=== PATIENT | male | born 1990 | race Caucasian/White ===

== ENCOUNTER 2022-06-25 19:28 | Outpatient (CLI) | payer OTHER, SELFPAY ==
--- NOTE | 2022-07-01 13:39 | W.PM.SLEEP ---
Sleep Study Details Details Interpreting Provider: Heriberto Joseph MD Date of Sleep Study: 06/25/22 Sleep Study Details: STUDY TYPE:? Home ? BMI:? 28.4 ORDERING PROVIDER:? [place] INDICATION:? Concerns about sleep apnea, elevated Bellerose Score ? SLEEP SUMMARY:? 419.9 monitored minutes RESPIRATORY SUMMARY:? AHI 5.3, supine 5.5, left lateral 9.2, right lateral 2.8 Low oxygen 88 0.8% of study oxygen less than 90%, 0.4% of study oxygen less than 85%, 0.3% of study oxygen less than 80% Snoring% 0.5 PERIODIC LIMB MOVEMENTS OF SLEEP:? Not recorded CARDIAC:? Range 61-102 beats per minute, mean 77.7 IMPRESSION:? Mild obstructive sleep apnea worse in the left lateral position RECOMMENDATION: If patient has daytime hypersomnolence, treatment options would include CPAP AutoSet 4-17, dental appliance and/or airway expansion surgery
--- NOTE | 2022-07-08 12:17 | W.PM.SLEEP ---
Sleep Study Details Details Interpreting Provider: Heriberto Joseph MD Date of Sleep Study: 06/25/22 Sleep Study Details: STUDY TYPE:? Home ? BMI:? 28.4 ORDERING PROVIDER:? [place] INDICATION:? Concerns about sleep apnea ? SLEEP SUMMARY:? 419.9 monitored minutes RESPIRATORY SUMMARY:? AHI 5.3, supine 5.5, left lateral 9.2, right lateral 2.8 Low oxygen 88 0.8% of study oxygen less than 90%, 0.4% of study less than 85%, 0.3% less than 80% Snoring 0.5% PERIODIC LIMB MOVEMENTS OF SLEEP:? Not recorded CARDIAC:? Range 61-102, mean 77.7 beats per minute IMPRESSION:? Mild obstructive sleep apnea RECOMMENDATION: If symptomatic treatment could consist of either CPAP AutoSet 4-17, dental appliance and/or airway expansion surgery.
== END 2022-06-25 19:29 | disposition home or self-care (01) ==
PROVIDERS: PCP Family Medicine; Visit Provider Family Medicine
DX: G47.33 Obstructive sleep apnea (adult) (pediatric) (principal)
CPT/HCPCS: 95806

== ENCOUNTER 2023-01-22 10:35 | Outpatient (CLI) | payer OTHER, SELFPAY | END 2023-01-22 10:36 | disposition home or self-care (01) | LOC: AMB 01-24 16:04 | PROVIDERS: PCP Family Medicine; Visit Provider Internal Medicine | DX: T43.621A Poisoning by amphetamines, accidental (unintentional), initial encounter (principal) | CPT/HCPCS: A0425; A0427 ==

== ENCOUNTER 2023-01-22 11:04 | Emergency (ER) | payer OTHER, SELFPAY ==
[2023-01-22] VITALS (19 sets, daily range): BP systolic 131–150; BP diastolic 83–99; PULSE 101–153; RESP 18–24; TEMP 36.4; O2SAT 97–100
--- NOTE | 2023-01-22 11:23 | ED.NURSE ---
Spoke with Poornima at Poison control. Informed that pt took 20-30tabs of 20mg Adderall XR three hours ago, at 0830. Pt is agitated and hypertensive. Per Poornima, pt will continue to be agitated and hypertensive, Ok to dose with 2mg of Ativan, repeat prn ever 15 minutes until sx are controlled. Will peak in 6-8 hours. Seizures are not likely, but should be on seizure precautions. Should have EKG and Tele monitoring. Draw chemistry, Tylenol and aspirin level. Watch and reassess at 6-8 hours. Meds will metabolize in [address] Mcmillan aware
--- NOTE | 2023-01-22 11:28 | ED_ITS ---
HPI - General Adult General Chief complaint: Overdose <Prashanth Nair MD - Last Filed: 01/22/23 13:58> Stated complaint: Suicidal ideation <Prashanth Nair MD - Last Filed: 01/22/23 13:58> Time Seen by Provider: 01/22/23 11:16 <Prashanth Nair MD - Last Filed: 01/22/23 13:58> History of Present Illness HPI narrative: Patient is a 32-year-old gentleman who is going through a very difficult time in his life. As result he took 30 20 mg tablets of Adderall this morning. He sat down watch [facility] [facility] and at the end called EMS as he was feeling extremely agitated. Patient was trying to end his life. He remains somewhat suicidal at this time. He states he has not use any other drugs or alcohol recently. He states that other than the agitation and chest pounding he has no other significant symptoms. Patient has had no cutting behavior and otherwise appears to be on injured. <Prashanth Nair MD - Last Filed: 01/22/23 13:58> Related Data Home medications: Home Medications Medication Instructions Recorded Confirmed naproxen sodium 220 mg capsule 220 mg PO BID PRN 01/22/23 01/22/23 (Aleve) Previous Rx's Medication Instructions Recorded escitalopram oxalate 20 mg tablet 20 mg PO QDAY #90 tabs 03/14/22 dextroamphetamine-amphetamine 20 20 mg PO TID #90 tabs 01/15/23 mg tablet (Adderall) dextroamphetamine-amphetamine 20 20 mg PO TID #90 tabs 01/15/23 mg tablet (Adderall) <Prashanth Nair MD - Last Filed: 01/22/23 13:58> Allergies/adverse reactions: Allergies Allergy/AdvReac Type Severity Reaction Status Date / Time No Known Drug Allergies Allergy Verified 01/22/23 11:14 <Prashanth Nair MD - Last Filed: 01/22/23 13:58> Review of Systems Status of ROS: Reports: 10 or more systems reviewed and unremarkable except as noted in History and below <Prashanth Nair MD - Last Filed: 01/22/23 13:58> [facility] Medical History: Medical History Suicidal ideation ?R45.851 - Suicidal ideations (ICD-10) Moderate episode of recurrent major depressive disorder (07/08/13) ?F33.1 - Major depressive disorder, recurrent, moderate (ICD-10) History of opioid abuse ?F11.11 - Opioid abuse, in remission (ICD-10) Generalized anxiety disorder (07/20/13) ?F41.1 - Generalized anxiety disorder (ICD-10) Attention deficit hyperactivity disorder (ADHD), predominantly inattentive type ?F90.0 - Attention-deficit hyperactivity disorder, predominantly inattentive type (ICD-10) <Prashanth Nair MD - Last Filed: 01/22/23 13:58> Surgical History: Surgical History History of shoulder surgery (2011) ?Z98.890 - Other specified postprocedural states (ICD-10) History of mandibular surgery (2010) ?Z98.890 - Other specified postprocedural states (ICD-10) <Prashanth Nair MD - Last Filed: 01/22/23 13:58> Social History: Social History Narrative: , 2 kids, 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[employer], smoker What is your current living situation?: I presently have a place to live Problems where you live: lead paint or pipes In the past 12 months, utilities in danger of being shut off: no In past 12 months, lack of transportation kept you from medical appts, meetings, work, or getting things needed for daily living: yes In the past 12 mos, have been you worried that your food would run out before you had money to buy more?: never true In the past 12 mos, the food you bought just didn't last and you didn't have money to buy more?: never true Smoking Status: Former smoker Do you use any of these nicotine containing products: Vaping Products How often do you have a drink containing alcohol: 2-3 times a week How many standard drinks containing alcohol do you have on a typical day: 1 or 2 How often do you have six or more drinks on one occasion: Monthly AUDIT-C Alcohol total score: 5 Non-prescribed substance use: marijuana (any form) How often does anyone, including family, friends and others, physically hurt you : never How often does anyone, including family, friends and others, insult or talk down to you: sometimes How often does anyone, including family, friends and others, threaten you with harm: sometimes How often does anyone, including family, friends and others, scream or curse at you: sometimes Little interest or pleasure in doing things: more than half the days Feeling down, depressed, or hopeless: more than half the days service: No <Prashanth Nair MD - Last Filed: 01/22/23 13:58> Exam Narrative: Exam Narrative: EXAM GENERAL: Patient appears to be agitated. EYES: No scleral icterus. LYMPH: No supraclavicular or cervical lymphadenopathy. SKIN: Visible skin seen during exam normal or with benign process only. EXT: No dependent lower extremity pedal edema. HEART: Regular tachycardia noted. LUNGS: Clear to auscultation bilaterally with no crackles or wheezes. ABD: Soft, non tender, non distended. PSYCH: Good eye contact, speech is not pressured. Neurologic cranial nerves 2-12 grossly intact no focal neurologic defects. <Prashanth Nair MD - Last Filed: 01/22/23 13:58> Const: Vital Signs, click to edit/add: Vital Signs - 24 hr 01/22/23 11:07 01/22/23 12:12 01/22/23 13:27 Temperature Pulse Rate [Right Pulse Oximeter] 153 H Respiratory Rate 24 Blood Pressure Blood Pressure [Ri ght Upper Arm] 131/99 H 150/92 H Pulse Oximetry 100 Oxygen Delivery Me thod Room Air 01/22/23 13:29 01/22/23 15:30 01/22/23 15:34 Temperature Pulse Rate [Right Pulse Oximeter] Respiratory Rate Blood Pressure 150/92 H 149/90 H Blood Pressure [Ri ght Upper Arm] 149/90 H Pulse Oximetry Oxygen Delivery Me thod 01/22/23 16:38 01/22/23 17:38 01/22/23 17:50 Temperature 97.6 F Pulse Rate [Right Pulse Oximeter] 130 H 125 H Respiratory Rate Blood Pressure Blood Pressure [Ri ght Upper Arm] Pulse Oximetry Oxygen Delivery Me thod 01/22/23 17:53 01/22/23 17:54 01/22/23 19:45 Temperature Pulse Rate [Right Pulse Oximeter] Respiratory Rate Blood Pressure 145/83 H 131/92 H Blood Pressure [Ri ght Upper Arm] 145/83 H Pulse Oximetry Oxygen Delivery Me thod 01/22/23 21:12 01/22/23 22:38 Temperature Pulse Rate [Right Pulse Oximeter] 122 H 108 H Respiratory Rate 18 18 Blood Pressure Blood Pressure [Ri ght Upper Arm] Pulse Oximetry 99 97 Oxygen Delivery Me thod Room Air Room Air <Prashanth Nair MD - Last Filed: 01/22/23 13:58> Vital Signs, click to edit/add: Vital Signs - 24 hr 01/22/23 11:07 01/22/23 12:12 01/22/23 13:27 Temperature Pulse Rate [Right Pulse Oximeter] 153 H Respiratory Rate 24 Blood Pressure Blood Pressure [Ri ght Upper Arm] 131/99 H 150/92 H Pulse Oximetry 100 Oxygen Delivery Me thod Room Air 01/22/23 13:29 01/22/23 15:30 01/22/23 15:34 Temperature Pulse Rate [Right Pulse Oximeter] Respiratory Rate Blood Pressure 150/92 H 149/90 H Blood Pressure [Ri ght Upper Arm] 149/90 H Pulse Oximetry Oxygen Delivery Me thod 01/22/23 16:38 01/22/23 17:38 01/22/23 17:50 Temperature 97.6 F Pulse Rate [Right Pulse Oximeter] 130 H 125 H Respiratory Rate Blood Pressure Blood Pressure [Ri ght Upper Arm] Pulse Oximetry Oxygen Delivery Me thod 01/22/23 17:53 01/22/23 17:54 01/22/23 19:45 Temperature Pulse Rate [Right Pulse Oximeter] Respiratory Rate Blood Pressure 145/83 H 131/92 H Blood Pressure [Ri ght Upper Arm] 145/83 H Pulse Oximetry Oxygen Delivery Me thod 01/22/23 21:12 01/22/23 22:38 Temperature Pulse Rate [Right Pulse Oximeter] 122 H 108 H Respiratory Rate 18 18 Blood Pressure Blood Pressure [Ri ght Upper Arm] Pulse Oximetry 99 97 Oxygen Delivery Me thod Room Air Room Air <Claudio Ackerman DO - Last Filed: 01/23/23 01:17> Course Course ED Course: Patient seen and examined. EKG troponin acetaminophen alcohol salicylate CBC CMP ordered. Poison control contacted. Patient given 1 L of normal saline 1 mg of Ativan. <Prashanth Nair MD - Last Filed: 01/22/23 13:58> Reevaluation(s) Time of Reevaluation #1: 13:57 <Prashanth Nair MD - Last Filed: 01/22/23 13:58> Reevaluation #1: Patient is found to have sinus tachycardia on EKG. Laboratory studies are reviewed. I did speak with the deck substation maintenance technician and they are recommending inpatient treatment. We have treated with Ativan and topical nicotine patches and we are waiting transferred for psychiatric care. <Prashanth Nair MD - Last Filed: 01/22/23 13:58> Vital Signs Vital signs: Initial Vital Signs Pulse Rate 153 H 01/22/23 11:07 Respiratory Rate 24 01/22/23 11:07 Pulse Oximetry 100 01/22/23 11:07 Oxygen Delivery Method Room Air 01/22/23 11:07 Vital Signs Pulse Rate 153 H 01/22/23 11:07 Respiratory Rate 24 01/22/23 11:07 Pulse Oximetry 100 01/22/23 11:07 Oxygen Delivery Method Room Air 01/22/23 11:07 Temperature 97.6 F 01/22/23 16:38 Pulse Rate 108 H 01/22/23 22:38 Respiratory Rate 18 01/22/23 22:38 Blood Pressure 131/92 H 01/22/23 19:45 Pulse Oximetry 97 01/22/23 22:38 Oxygen Delivery Method Room Air 01/22/23 22:38 <Prashanth Nair MD - Last Filed: 01/22/23 13:58> Initial Vital Signs Pulse Rate 153 H 01/22/23 11:07 Respiratory Rate 24 01/22/23 11:07 Pulse Oximetry 100 01/22/23 11:07 Oxygen Delivery Method Room Air 01/22/23 11:07 Vital Signs Pulse Rate 153 H 01/22/23 11:07 Respiratory Rate 24 01/22/23 11:07 Pulse Oximetry 100 01/22/23 11:07 Oxygen Delivery Method Room Air 01/22/23 11:07 Temperature 97.6 F 01/22/23 16:38 Pulse Rate 108 H 01/22/23 22:38 Respiratory Rate 18 01/22/23 22:38 Blood Pressure 131/92 H 01/22/23 19:45 Pulse Oximetry 97 01/22/23 22:38 Oxygen Delivery Method Room Air 01/22/23 22:38 <Claudio Ackerman, DO - Last Filed: 01/23/23 01:17> Medical Decision Making MDM Narrative Medical decision making narrative: Patient was signed out to me pending improvement in heart rate. Poison Control informed us to increase the Ativan dosage from 1 mg to 2 mg for better rate control. With increased Ativan dosage his heart rate has improved. It is currently still in the low 100s. He is not medically clear yet per poison Control and the signed out to my colleague Dr. Ladd <Claudio Ackerman DO - Last Filed: 01/23/23 01:17> Lab Data Labs: Lab Results 01/22/23 01/22/23 01/22/23 Range/Units 11:45 16:54 Unknown WBC 12.19 H (4.50-11.00) K/uL RBC 5.28 (4.30-5.90) m/uL Hgb 16.7 (13.5-17.5) gm/dL Hct 45.6 (37.0-53.0) % MCV 86 (80-100) fL MCH 32 (26-34) pg MCHC 37 H (32-36) gm/dL RDW Coeff of Kristin 11.9 (11.5-15.5) % Plt Count 307 (140-440) K/uL Neut % (Auto) 78.8 H (42.0-72.0) % Lymph % (Auto) 13.4 L (20-44) % [place] % (Auto) 7.3 (0.0-11.0) % Eos % (Auto) 0.2 (0.0-7.0) % Baso % (Auto) 0.2 (0.0-3.0) % Neut # (Auto) 9.60 H (1.7-7.0) K/uL Lymph # (Auto) 1.60 (0.90-2.90) K/uL [place] # (Auto) 0.90 (0.00-0.90) K/UL Eos # (Auto) 0.00 (0.00-0.50) K/uL Baso # (Auto) 0.00 (0.00-0.30) K/uL Abs Immat Gran (auto) 0.00 (0.00-0.30) K/uL Imm/Tot Granulo (auto) 0.1 % Sodium 141 (135-149) mmol/L Potassium 3.3 L (3.6-5.1) mmol/L Chloride 104 (96-114) mmol/L Carbon Dioxide 20 (20-32) mmol/L Anion Gap 17 H (7-15) mEq/L BUN 14 (5-24) mg/dL Creatinine 0.8 (0.5-1.5) mg/dL Estimated GFR 121 ml/min Glucose 133 H (60-115) mg/dL Calcium 9.7 (8.4-10.6) mg/dL Total Bilirubin 1.3 (0.1-1.5) mg/dL AST 49 H (12-35) U/L ALT 61 H (4-50) U/L Alkaline Phosphatase 56 (40-150) U/L Troponin I < 0.01 L (0.01-0.04) ng/mL Total Protein 8.0 (6.0-8.3) g/dL Albumin 5.1 H (3.3-5.0) g/dL Salicylates < 1.0 L (1.0-10) mg/dL Urine Opiates Screen Negative (Negative) Ur Oxycodone Screen Negative (Negative) Urine Methadone Screen Negative (Negative) Ur Propoxyphene Screen Negative (Negative) Acetaminophen < 10.0 L (10.0-30.0) ug/mL Ur Barbiturates Screen Negative (Negative) U Tricyclic Antidepress Negative (Negative) Ur Phencyclidine Scrn Negative (Negative) Ur Amphetamines Screen POSITIVE A (Negative) U Methamphetamines Scrn Negative (Negative) U Benzodiazepines Scrn Negative (Negative) Urine Cocaine Screen Negative (Negative) U Marijuana (THC) Screen POSITIVE A (Negative) Ur Drug Screen Comment See Note Ethyl Alcohol < 0.01 L (0.01-0.03) % SARS-CoV-2 (PCR) Negative SARS-CoV-2 (Negative) Influenza Type A (PCR) Negative PCR FLU A (Negative) Influenza Type B (PCR) Negative PCR FLU B (Negative) RSV (PCR) Negative PCR RSV (Negative) <Prashanth Nair MD - Last Filed: 01/22/23 13:58> Lab Results 01/22/23 01/22/23 01/22/23 Range/Units 11:45 16:54 Unknown WBC 12.19 H (4.50-11.00) K/uL RBC 5.28 (4.30-5.90) m/uL Hgb 16.7 (13.5-17.5) gm/dL Hct 45.6 (37.0-53.0) % MCV 86 (80-100) fL MCH 32 (26-34) pg MCHC 37 H (32-36) gm/dL RDW Coeff of Kristin 11.9 (11.5-15.5) % Plt Count 307 (140-440) K/uL Neut % (Auto) 78.8 H (42.0-72.0) % Lymph % (Auto) 13.4 L (20-44) % [place] % (Auto) 7.3 (0.0-11.0) % Eos % (Auto) 0.2 (0.0-7.0) % Baso % (Auto) 0.2 (0.0-3.0) % Neut # (Auto) 9.60 H (1.7-7.0) K/uL Lymph # (Auto) 1.60 (0.90-2.90) K/uL [place] # (Auto) 0.90 (0.00-0.90) K/UL Eos # (Auto) 0.00 (0.00-0.50) K/uL Baso # (Auto) 0.00 (0.00-0.30) K/uL Abs Immat Gran (auto) 0.00 (0.00-0.30) K/uL Imm/Tot Granulo (auto) 0.1 % Sodium 141 (135-149) mmol/L Potassium 3.3 L (3.6-5.1) mmol/L Chloride 104 (96-114) mmol/L Carbon Dioxide 20 (20-32) mmol/L Anion Gap 17 H (7-15) mEq/L BUN 14 (5-24) mg/dL Creatinine 0.8 (0.5-1.5) mg/dL Estimated GFR 121 ml/min Glucose 133 H (60-115) mg/dL Calcium 9.7 (8.4-10.6) mg/dL Total Bilirubin 1.3 (0.1-1.5) mg/dL AST 49 H (12-35) U/L ALT 61 H (4-50) U/L Alkaline Phosphatase 56 (40-150) U/L Troponin I < 0.01 L (0.01-0.04) ng/mL Total Protein 8.0 (6.0-8.3) g/dL Albumin 5.1 H (3.3-5.0) g/dL Salicylates < 1.0 L (1.0-10) mg/dL Urine Opiates Screen Negative (Negative) Ur Oxycodone Screen Negative (Negative) Urine Methadone Screen Negative (Negative) Ur Propoxyphene Screen Negative (Negative) Acetaminophen < 10.0 L (10.0-30.0) ug/mL Ur Barbiturates Screen Negative (Negative) U Tricyclic Antidepress Negative (Negative) Ur Phencyclidine Scrn Negative (Negative) Ur Amphetamines Screen POSITIVE A (Negative) U Methamphetamines Scrn Negative (Negative) U Benzodiazepines Scrn Negative (Negative) Urine Cocaine Screen Negative (Negative) U Marijuana (THC) Screen POSITIVE A (Negative) Ur Drug Screen Comment See Note Ethyl Alcohol < 0.01 L (0.01-0.03) % SARS-CoV-2 (PCR) Negative SARS-CoV-2 (Negative) Influenza Type A (PCR) Negative PCR FLU A (Negative) Influenza Type B (PCR) Negative PCR FLU B (Negative) RSV (PCR) Negative PCR RSV (Negative) <Claudio Ackerman, DO - Last Filed: 01/23/23 01:17> Discharge Plan Discharge Prescriptions: No Action escitalopram oxalate 20 mg tablet 20 mg PO QDAY Qty: 90 3RF naproxen sodium [Aleve] 220 mg capsule 220 mg PO BID PRN dextroamphetamine-amphetamine [Adderall] 20 mg tablet 20 mg PO TID Qty: 90 0RF Rx Instructions: administer doses at least 4-6 hours apart dextroamphetamine-amphetamine [Adderall] 20 mg tablet 20 mg PO TID Qty: 90 0RF Rx Instructions: administer doses at least 4-6 hours apart <Prashanth Nair MD - Last Filed: 01/22/23 13:58> Follow Up/Referrals: Familia Haynes MD [Primary Care Provider] - <Prashanth Nair MD - Last Filed: 01/22/23 13:58>
[2023-01-22] MEDS: LORazepam 2 MG/ML inj 1 MG IVP ×2 (11:59→18:07)
[2023-01-22] MEDS: 0.9 % SODIUM CHLORIDE 1000 ml 1,000 ML IV (12:00)
[2023-01-22 12:06] LABS: Basophils Percent Auto 0.2 % (0.0-3.0); Eosinophils Percent Auto 0.2 % (0.0-7.0); Hematocrit 45.6 % (37.0-53.0); Hemoglobin* 16.7 gm/dL (13.5-17.5); Immature Granulocytes Pct Auto 0.1 %; Lymphocytes Percent Auto 13.4 % (20-44); Mean Corpuscular HGB Conc 37 gm/dL (32-36); Mean Corpuscular Hemoglobin 32 pg (26-34); Mean Corpuscular Volume 86 fL (80-100); Monocytes Percent Auto 7.3 % (0.0-11.0); Neutrophils Percent Auto 78.8 % (42.0-72.0); Platelet Count* 307 K/uL (140-440); RDW Coefficient of Variation % 11.9 % (11.5-15.5); Red Blood Count 5.28 m/uL (4.30-5.90); White Blood Count* 12.19 K/uL (4.50-11.00)
[2023-01-22 12:10] LABS: Slide Review Reflex No
[2023-01-22 12:19] LABS: Albumin* 5.1 g/dL (3.3-5.0)
[2023-01-22 12:20] LABS: Chloride* 104 mmol/L (96-114); Potassium* 3.3 mmol/L (3.6-5.1); Sodium* 141 mmol/L (135-149)
[2023-01-22 12:22] LABS: Alkaline Phosphatase* 56 U/L (40-150); Anion Gap 17 mEq/L (7-15); Aspartate Amino Transferase* 49 U/L (12-35); Bilirubin Total* 1.3 mg/dL (0.1-1.5); Blood Urea Nitrogen* 14 mg/dL (5-24); Carbon Dioxide* 20 mmol/L (20-32); Creatinine* 0.8 mg/dL (0.5-1.5); Estimated Glomerular Filt Rate 121 ml/min; Glucose* 133 mg/dL (60-115)
[2023-01-22 12:23] LABS: Alanine Aminotransferase* 61 U/L (4-50); Calcium* 9.7 mg/dL (8.4-10.6)
--- NOTE | 2023-01-22 12:25 | ED.NURSE ---
pt has been calm and cooperative. Pt reports that he wishes he did not contact anyone today, to tell them what happened.
[2023-01-22 12:28] LABS: Acetaminophen* < 10.0 ug/mL (10.0-30.0); Ethanol* < 0.01 % (0.01-0.03); Salicylate* < 1.0 mg/dL (1.0-10)
[2023-01-22 12:36] LABS: Troponin I* < 0.01 ng/mL (0.01-0.04)
[2023-01-22 12:38] LABS: Amphetamine Screen Urine POSITIVE (Negative); Barbiturate Screen Urine Negative (Negative); Benzodiazepines Screen Urine Negative (Negative); Cannabinoid Screen Urine POSITIVE (Negative); Cocaine Screen Urine Negative (Negative); Methadone Screen Urine Negative (Negative); Methamphetamines Screen Urine Negative (Negative); Opiate Screen Urine Negative (Negative); Oxycodone Screen Urine Negative (Negative); Phencyclidine Screen Urine Negative (Negative); Tricyclic Antidepressant Urine Negative (Negative)
--- NOTE | 2023-01-22 12:53 | ED.NURSE ---
Security was called to go through pt belongings. Belongings including phone, vape, and clothes were put in a bag and in the med room from away from the patient.
[2023-01-22] MEDS: NICOTINE 14 mg PATCH 1 PATCH TRANSDERMA (14:06)
--- NOTE | 2023-01-22 15:33 | ED.NURSE ---
Pt has been calm and cooperative. Pt was read he rights as a patient. Pt received his phone back as he has been cooperative.
--- NOTE | 2023-01-22 16:53 | ED.NURSE ---
Pt is still calm and cooperative. Pt watching TV and resting intermittently.
[2023-01-22 17:38] LABS: PCR FLU A Negative PCR FLU A (Negative); PCR FLU B Negative PCR FLU B (Negative); PCR RSV Negative PCR RSV (Negative); SARS PCR* Negative SARS-CoV-2 (Negative)
--- NOTE | 2023-01-22 19:29 | ED.NURSE ---
Pt parents in room. Pt is still calm and cooperative
--- NOTE | 2023-01-22 19:32 | ED.NURSE ---
pt given food
--- NOTE | 2023-01-22 19:47 | ED.NURSE ---
pt given deodorant and toothbrush/toothpaste. Pt still cooperative
--- NOTE | 2023-01-22 19:47 | ED.NURSE ---
report given to oncoming RN.
[2023-01-22] MEDS: LORazepam 2 MG/ML inj IVP (21:06)
[2023-01-23] VITALS (11 sets, daily range): BP systolic 110–131; BP diastolic 72–92; PULSE 82–110; RESP 16–20; TEMP 36.4–37; O2SAT 91–100
[2023-01-23] MEDS: NICOTINE 2 MG GUM BUCCAL (00:03)
[2023-01-23] MEDS: LORazepam 2 MG/ML inj IVP (00:55)
--- NOTE | 2023-01-23 02:31 | ED.NURSE ---
poison control contacted, states past peak, should be improving. To clear pt needs to be 4 hours post ativan with HR under 100 and clear mental status. Hr 100-112, pt drowsy, does state he is hallucinating, pt tried to give a pudding cup to the computer stating hey karen you can eat this one. MD Ladd updated.
[2023-01-23] MEDS: LORazepam 2 MG/ML inj 1 MG IVP (02:36)
--- NOTE | 2023-01-23 09:16 | ED.NURSE ---
breakfast offered. pt ordered and then fell back asleep
--- NOTE | 2023-01-23 11:05 | ED.NURSE ---
2nd EKG requested by Jamison Navarro completed and sent.
--- NOTE | 2023-01-23 11:08 | ED.NURSE ---
continues to sleep
== END 2023-01-23 13:25 | disposition short-term general hospital (02) ==
PROVIDERS: Internal Medicine; Emergency Provider Student in an Organized Health Care Education/Training Program; PCP Family Medicine
DX: T43.622A Poisoning by amphetamines, intentional self-harm, initial encounter (principal)
CPT/HCPCS: 36415; 80053; 80143; 80179; 80306; 82077; 84484; 85025; 87631; 93005; 96374; 96375; 99283; 99284; J2060; J7030; S4990

== ENCOUNTER 2023-01-23 12:44 | Outpatient (CLI) | payer OTHER, SELFPAY | END 2023-01-23 12:45 | disposition home or self-care (01) | PROVIDERS: PCP Family Medicine; Visit Provider Emergency Medicine Emergency Medical Services | DX: F33.1 Major depressive disorder, recurrent, moderate (principal) | CPT/HCPCS: A0425; A0428 ==